=== PATIENT | male | born 1995 | race Two or more races ===

== ENCOUNTER 2018-02-05 16:58 | Emergency (ER) | payer SELFPAY ==
[2018-02-05] MEDS: NAPROXEN 500 MG TABLET PO (18:30)
[2018-02-05 18:57] LABS: D-DIMER < 0.27 ug/mlFEU (0.00-0.50)
== END 2018-02-05 19:40 | disposition home or self-care (01) ==
LOC: ER 16:58
DX: M94.0 Chondrocostal junction syndrome [Tietze] (principal); M25.512 Pain in left shoulder
CPT/HCPCS: 36415; 71101; 85379; 93005; 99285-25

== ENCOUNTER 2018-11-28 07:50 | Emergency (ER) | payer OTHER ==
[~2018-11-28] VITALS: Ht 180.3 cm; Wt 90.7 kg
[~2018-11-28 07:50] MED LIST: NAPR500T8 PO
[2018-11-28 08:00] VITALS: BP 160/101
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
--- NOTE | 2018-11-28 09:19 | RAD ---
Left leg venous Doppler study: Clinical indications: History of DVT. Recent immobilization. Bruising of the medial aspect of the left knee.. Findings: Duplex sonography (including hodge scale evaluation and color flow and waveform spectral analysis) of the proximal aspect of the greater saphenous vein and the proximal aspect of the profunda femoral vein and the entire length of the common femoral and superficial femoral and popliteal veins and the tibioperoneal trunk and the proximal aspect of the posterior tibial and peroneal veins of the left leg was performed. Normal compressibility, augmentation of color Doppler flow after calf compression, and respiratory variation of Doppler flow is seen. Thus, there are no sonographic findings of deep venous thrombosis within these veins. Impression: There are no sonographic findings of deep venous thrombosis within the veins discussed above of the left lower extremity. Small approximate 1 cm nodule is seen in the area of bruising consistent with a small soft tissue hematoma. Electronically signed by: Narendra Brink MD (11/28/2018 9:16 AM) [facility]
== END 2018-11-28 09:46 | disposition home or self-care (01) ==
LOC: ER 07:50
DX: S80.02XA Contusion of left knee, initial encounter (principal); M79.605 Pain in left leg; R53.1 Weakness; Z86.718 Personal history of other venous thrombosis and embolism; X58.XXXA Exposure to other specified factors, initial encounter; Y93.89 Activity, other specified; Y92.89 Other specified places as the place of occurrence of the external cause; Y99.8 Other external cause status
CPT/HCPCS: 93971; 99284